=== PATIENT | female | born 1975 | race Caucasian/White ===

== ENCOUNTER 2025-02-12 16:00 | Outpatient (CLI) | payer BC, SELFPAY ==
[2025-02-12 19:16] LABS: Hematocrit 42.9 % (37.0-47.0); Hemoglobin 15.0 g/dL (12.2-16.2); Immature Granulocytes % 0.2 %; Mean Corpuscular HGB Conc 35.0 g/dL (31.8-35.4); Mean Corpuscular Hemoglobin 29.1 pg (27.0-31.2); Mean Corpuscular Volume 83.3 fl (81-99); Nucleated Red Blood Cells % 0 %; Platelet Count 255 K/mm3 (142-424); Red Blood Count 5.15 M/mm3 (4.20-5.40); Red Cell Distribution Width-SD 41.7 fL; White Blood Count 8.3 K/mm3 (4.8-10.8)
[2025-02-12 19:42] LABS: Alanine Aminotransferase 85 U/L (12-78); Albumin Level 4.4 g/dl (3.5-5.0); Albumin/Globulin Ratio 1.6 (1.1-1.8); Alkaline Phosphatase 62 U/L (38-126); Anion Gap 11.4 mEq/L (5-15); Aspartate Amino Transferase 47 U/L (14-36); Bilirubin,Total 0.4 mg/dl (0.2-1.3); Blood Urea Nitrogen 13 mg/dl (7-17); Calcium 9.5 mg/dl (8.4-10.2); Carbon Dioxide 24 mmol/L (22.0-30.0); Chloride 104 mmol/L (98-107); Cholesterol 186 mg/dl (140-200); Creatinine,Serum 0.70 mg/dl (0.52-1.04); Estimated Glomerular Filt Rate 90 ml/min (>60); GFR (African American) 109 ML/MIN (>60); Globulin 2.8 g/dL (1.3-3.2); Glucose 83 mg/dl (74-100); HDL Cholesterol 37 mg/dl (40-60); Potassium 4.4 mmoL/L (3.5-5.1); Sodium 135 mmol/L (136-145); Total Protein,Serum 7.2 g/dl (6.3-8.2); Triglycerides 153 mg/dl (30-150)
[2025-02-12 20:29] LABS: Hepatitis C Ab Qual. W/ RFX NEGATIVE (Negative)
--- OUTSIDE RECORDS SUMMARY | 2025-02-13 11:47 | XMS_ITS | Clinical Summary ---
Author Organization [facility] Address [address] [place] [address] [address] Phone Care Team Providers Care Controller [place] Name Role Phone Unavailable Primary Care Provider Unavailabl e Allergies Active Allergy Reactions Criticality Noted Date Comments Gatifloxacin Hives,Other (See Comments),Palpitations,S welling 10/08/2012 Shortness of breath, hives, increased BP Medications clonazePAM (KLONOPIN) 1 mg Oral Tablet Take 0.5 mg by mouth. Active ergocalciferol (DRISDOL) 1,250 mcg (50,000 unit) Oral Capsule Take 1 Capsule by mouth once a week. 08/04/2022 Active omeprazole (PRILOSEC) 20 mg Oral Capsule, Delayed Release(E.C.) Take 20 mg by mouth daily. Active SYNTHROID 75 mcg Oral Tablet Take 1 Tablet by mouth daily. 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 08/23/2016 Abdominal mass 01/13/2014 Chronic cholecystitis 10/21/2013 Fatty liver 10/21/2013 Nausea 10/21/2013 Abnormal uterine bleeding 10/18/2012 Immunizations Immunization Administration Dates Next Due Influenza Vaccine Quadrivalent 01/03/2017 Influenza Vaccine Quadrivalent PF 01/18/2021,05/2019 Influenza, Injectable, MDCK, PF, Quadrivalent Social History Tobacco Use Types Packs/Day Years Used Date Smoking Tobacco: Some Days Cigarettes Smokeless Tobacco: Never Tobacco Cessation:Ready to Q uit: Not Asked; Counseling Given: Not Answered Comments:Social Smoker, one or two cigarettes Alcohol Use Standard Drinks/Week Comments Yes 1 (1 standard drink = 0.6 oz pur e alcohol) Once a week Comments Unknown Sex and Gender Information Value Date Recorded Sex Assigned at Not on file Legal Sex Female 4:12 PM EDT Gender Identity Not on file Sexual Orientation Not on file Last Filed Vital Signs Vital Sign Reading Time Taken Comments Blood Pressure 124/80 09/18/2024 10:10 AM EDT Pulse 94 09/18/2024 10:10 AM EDT Temperature - - Respiratory Rate 18 09/18/2024 10:10 AM EDT Oxygen Saturation - - Inhaled Oxygen Concentration - - Weight 126.1 kg (278 lb) 09/18/2024 10:10 AM EDT Height 165.1 cm (5' 5 ) 09/18/2024 10:10 AM EDT Body Mass Index 46.26 09/18/2024 10:10 AM EDT Plan of Treatment Upcoming Encounters Date Type Department Care Team (Late st Contact Info) Description 09/18/2025 9:00 AM EDT Office Visit [facility] [address] [place] [phone] Jay Alvarado MD [address] [place] [address] Health Maintenance Due Date Last Done Comments Annual Wellness Exam 1980 DTaP/TDaP/Td (1 - Tdap) 1996 Hepatitis B Vaccine (1 of 3 - 19+ 3-dose series) 1996 Pneumococcal Vaccine 0-49 (1 of 2 - PCV) 1996 Cervical Cancer Screening 1998 Pap Smear 1998 HPV/Pap Cotest 09/13/2007 Cologuard 2022 Colon Cancer Screening 2022 Colonoscopy 2022 FIT 2022 Sigmoidoscopy 2022 Virtual Colonography 2022 COVID-19 Vaccine ( season) 2024 12/07/2023, 01/26/2022, 01/18/2021, Additional history exists Influenza Vaccine (#1) 2024 , 01/26/2022, 01/18/2021, Additional history exists Breast Cancer Screening 10/16/2025 10/17/2023 Meningococcal B Vaccine Aged Out No l onger eligible based on patient's age to complete this topic Insurance ANTHEM PPO ANTHEM PPO
--- OUTSIDE RECORDS SUMMARY | 2025-02-13 11:47 | XMS_ITS | Encounter Summary ---
Author Organization [facility] Address [address] [place] [address] Care Team Providers Care Machine Setter Sheet Metal Name Role Phone Uriel Pickering MD Unavailable [phone] Joanna Brito RN Unavailable Unavailable Gustavo Babin MD Primary Care Provider Frank Pastrana MD Unavailable Ramiro Estrada-Mali Unavailable [phone] Sam Chapman MD Unavailable [phone] Reason for Visit * Reason Onset Date Comments Other 08/29/2023 Schedule Encounter Details Date Type Department Care Team (Late st Contact Info) Description 08/29/2023 Telephone [facility] [address] [place] [phone] Sam Chapman MD [address] [place] [phone] Other (Schedule) Social History Tobacco Use Types Packs/Day Years Used Date Smoking Tobacco: Some Days Cigarettes 0.3 25 Smokeless Tobacco: Never Alcohol Use Standard Drinks/Week Comments Yes 0 (1 standard drink = 0.6 oz pur e alcohol) occas Comments No Sex and Gender Information Value Date Recorded Sex Assigned at Not on file Legal Sex Female 10:57 PM EST Gender Identity Not on file Sexual Orientation Not on file documented as of this encounter Miscellaneous Notes * Telephone Encounter - Avani Prieto - 08/31/2023 12:23 PM EDT Patient wants a colonoscopy with Dr Chapman * Telephone Encounter - Rachel Zafar - 08/29/2023 4:09 PM EDT Patient is calling in wanting to schedule a colonoscopy, she stated that she hasn't seen nely in over 10 years. Please advise documented in this encounter Plan of Treatment Not on file documented as of this encounter Visit Diagnoses Not on filedocumented in this encounter Care Teams Machine Setter Sheet Metal Relationship Specialty Start Date End Date Gustavo Babin MD [address] [place] [address] PCP - General Family Medicine 12/24/13 Uriel Pickering MD [address] [place] [phone] Gastroenterology 11/19/13 Joanna Brito, PATRICK 12/13/13 Frank Pastrana MD [address] [place] [address] [address] [place] [address] Obstetrics & Gynecology 07/11/22 Ramiro Estrada PA-C [address] [place] [address] [address] [place] [address] Physician Wreath Maker 08/07/23 Sam Chapman MD [address] [place] [address] [address] [place] [address] Gastroenterology 08/31/23 documented as of this encounter
--- OUTSIDE RECORDS SUMMARY | 2025-02-13 11:47 | XMS_ITS | Encounter Summary ---
Author Organization [facility] Address [address] [place] [address] Care Team Providers Care Shiftman Name Role Phone Uriel Pickering MD Unavailable [phone] Joanna Brito RN Unavailable Unavailable Gustavo Babin MD Primary Care Provider Frank Pastrana MD Unavailable Ramiro Estrada-C Unavailable [phone] Sam Chapman MD Unavailable [phone] Encounter Details Date Type Department Care Team (Late st Contact Info) Description 08/31/2023 Telephone [facility] [address] [place] [phone] Sam Chapman MD [address] [place] [id number] Social History Tobacco Use Types Packs/Day Years [...] encounter Miscellaneous Notes * Telephone Encounter - Bharti Ahumada - 08/31/2023 2:48 PM EDT Please send nuletely to [facility] for colonoscopy with gg on 12/17 Thank you documented in this encounter Plan of Treatment Not on file documented as of this encounter Visit Diagnoses Diagnosis Colon cancer screening- Primary Special screening for malignant neoplasms, colon documented in this encounter Care Teams Shiftman Relationship Specialty Start Date End Date Gustavo Babin MD [address] [place] [address] PCP - General Family Medicine 12/24/13 Uriel Pickering MD [address] [place] [address] [address] [place] [address] Gastroenterology 11/19/13 Joanna Brito, RN 12/13/13 Frank Pastrana MD [address] [place] [address] [address] [place] [address] Obstetrics & Gynecology 07/11/22 Ramiro Estrada PA-C [address] [address] [place] [address] Physician Chemical Manager 08/07/23 Sam Chapman MD [address] [place] [address] [address] [place] [address] Gastroenterology 08/31/23 documented as of this encounter
--- OUTSIDE RECORDS SUMMARY | 2025-02-13 11:47 | XMS_ITS | Encounter Summary ---
Author Organization [facility] Address [address] [place] [address] Care Team Providers Care Concrete Pipe Making Machine Operator Name Role Phone Uriel Pickering MD Unavailable [phone] Joanna Brito RN Unavailable Unavailable Gustavo Babin MD Primary Care Provider Frank Pastrana MD Unavailable Ramiro Estrada PA-C Unavailable [phone] Sam Chapman MD Unavailable [phone] Encounter Details Date Type Department Care Team (Latest Contact Info) Description 01/04/2016 Transcribe Orders [facility] Ramiro Estrada PA-C [address] [place] [address] Routine cervical smear (Primary Dx) Social History Tobacco Use Types Packs/Day Years Used Date Smoking Tobacco: Some Days Cigarettes Alcohol Use Standard Drinks/Week Comments Yes 58.3 (1 standard drink = 0.6 oz pure alcohol) glass of wine daily Comments No Sex and Gender Information Value Date Recorded Sex Assigned at Not on file Legal Sex Female 10:57 PM EST Gender Identity Not on file Sexual Orientation Not on file documented as of this encounter Plan of Treatment Not on file documented as of this encounter Results * Health Informatics Specialist Cases (01/04/2016 4:31 PM EDT) MECHANICAL INSULATOR CASES SEE BELOW [facility] Comment: [facility] [address] [address] Department of Cytology NADINE CASEY [id number] SPECIMEN SUBMITTED: CERVICAL VAGINAL THIN PREP - IMAGED RELEVANT LMP....None HISTORY: Provided SPECIMEN ADEQUACY SATISFACTORY FOR EVALUATION ENDOCERVICAL/TRANSFORMATION ZONE COMPONENT ABSENT/INSUFFICIENT GENERAL CATEGORIZATION NEGATIVE FOR INTRAEPITHELIAL LESIONS OR MALIGNANCY INTERPRETATION BENIGN CYTOLOGY COMMENTS NEGATIVE@[facility] HPV, HIGH RISK, SCRN, RNA Lab Order # [id number] FURTHER FOLLOW-UP CLINICALLY INDICATED NOTES Specimen successfully analyzed by ThinPrep Imaging System (Manufactured by [employer], [place], [place]) Following automated imaging, selected goldsmith were reviewed by a irrigation supervisor Local Az Truck Driver(s) <Sign Out Dr. Mosley> MAGDA WIGGINS, (CT, ASCP) Page 1 of 1 Cervical/Vaginal ThinPrep (Cervix) 01/04/2016 4:31 PM EDT 01/05/2016 12:12 PM EDT Ramiro Estrada PA-C PATHOLOGY/CYTOLOGY ORDERABLES Final Result Performing Organization Address City/State/[facility] Co de Phone Number [facility] [address] [place] [address] documented in this encounter Visit Diagnoses Diagnosis Routine cervical smear- Primary Screening for malignant neoplasm of the cervix documented in this encounter Additional Health Concerns Infection Onset Date Last Indicated Resolved Time Covid-19 (confirmed) 03/02/2022 03/02/2022 022 10:12 PM EST documented as of this encounter Care Teams Concrete Pipe Making Machine Operator Relationship Specialty Start Date End Date Gustavo Babin MD [address] [place] [address] PCP - General Family Medicine 12/24/13 Uriel Pickering MD [address] [place] [phone] Gastroenterology 11/19/13 Joanna Brito RN 12/13/13 Frank Pastrana MD [address] [place] [address] [address] [place], [place] [id number] Obstetrics & Gynecology 07/11/22 Ramiro Estrada PA-C [address] [place] [address] [address] [place] [address] Physician Edi Programmer Analyst 08/07/23 Sam Chapman MD [address] [place] [address] [address] [place] [address] Gastroenterology 08/31/23 documented as of this encounter
--- OUTSIDE RECORDS SUMMARY | 2025-02-13 11:47 | XMS_ITS | Clinical Summary ---
Author Organization [facility] 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
--- OUTSIDE RECORDS SUMMARY | 2025-02-13 11:47 | XMS_ITS | Encounter Summary ---
Author Organization [facility] Address [address] [place] [address] Care Team Providers Care Cash Processor Name Role Phone Uriel Pickering MD Unavailable [phone] Joanna Brito RN Unavailable Unavailable Gustavo Babin MD Primary Care Provider Frank Pastrana MD Unavailable [phone] Ramiro Estrada PA-C Unavailable [phone] Sam Chapman MD Unavailable [phone] Encounter Details Date Type Department Care Team (Latest Contact Info) Description 12/31/2014 Transcribe Orders [facility] Ramiro Estrada PA-C [address] [place] [address] Routine cervical smear (Primary Dx) Social History [...] documented as of this encounter Results * Pap Smear (certified court/medical interpreter cases) (12/31/2014 2:48 PM EDT) DIRECT CARE WORKER CASES SEE BELOW [facility] Comment: [facility] [address] [address] Department of Cytology NADINE CASEY [id number] SPECIMEN SUBMITTED: CERVICAL VAGINAL THIN PREP - IMAGED RELEVANT LMP....None HISTORY: Provided SPECIMEN ADEQUACY SATISFACTORY FOR EVALUATION ENDOCERVICAL/TRANSFORMATION ZONE COMPONENT PRESENT GENERAL CATEGORIZATION NEGATIVE FOR INTRAEPITHELIAL LESIONS OR MALIGNANCY DESCRIPTIVE DIAGNOSIS BENIGN CYTOLOGY COMMENTS THIS SPECIMEN HAS BEEN ANALYZED BY THE THINPREP IMAGING SYSTEM. FOLLOWING AUTOMATED IMAGING, SELECTED [place] WERE REVIEWED BY A SOCIAL SERVICE DIRECTOR <Sign Out Dr. Mosley> Screened By : MAGDA WIGGINS, (CT, ASCP) Page 1 of 1 Cervical/Vaginal ThinPrep (Cervix) 12/31/2014 2:48 PM EDT 01/01/2015 8:41 AM EDT Ramiro Estrada PA-C PATHOLOGY/CYTOLOGY ORDERABLES Final Result Performing Organization Address City/State/[facility] Co de Phone Number [facility] [address] [place] [address] documented in this encounter Visit Diagnoses Diagnosis Routine cervical smear- Primary Screening for malignant neoplasm of the cervix documented in this encounter Additional Health Concerns Infection Onset Date Last Indicated Resolved Time Covid-19 (confirmed) 03/02/2022 03/02/2022 022 10:12 PM EST documented as of this encounter Care Teams Cash Processor Relationship Specialty Start Date End Date Gustavo Babin MD [address] [place] [address] PCP - General Family Medicine 12/24/13 Uriel Pickering MD [address] [place] [id number] Gastroenterology 11/19/13 Joanna Brito, PATRICK 12/13/13 Frank Pastrana MD [address] [place] [address] Obstetrics & Gynecology 07/11/22 Ramiro Estrada PA-C [address] [address] [place] [address] Physician Stable Manager 08/07/23 Sam Chapman MD [address] [address] [place] [address] Gastroenterology 08/31/23 documented as of this encounter
--- OUTSIDE RECORDS SUMMARY | 2025-02-13 11:47 | XMS_ITS | Encounter Summary ---
Author Organization [facility] Address [address] [place] [address] Care Team Providers Care Surgical Assistant Certified Name Role Phone Uriel Pickering MD Unavailable [phone] Joanna Brito RN Unavailable Unavailable Gustavo Babin MD Primary Care Provider [phone] Frank Pastrana MD Unavailable Ramiro Estrada-C Unavailable Sam Chapman MD Unavailable [phone] Encounter Details Date Type Department Care Team (Late st Contact Info) Description 10/22/2013 Telephone Pre-Admission Testing [address] [place] [address] Erin Cheung, PATRICK Social History Tobacco Use Types Packs/Day Years [...] on file documented as of this encounter Functional Status * Pre-Procedure Verification Question Answer Date of Assessment Author Patient's responses verified with relevant data in medical record? Admission Database;History and Physical;Physician's Order 10/22/2013 2:41 PM EDT Erin Cheung RN Verbal Verification with: Patient 10/22/2013 2:41 PM EDT Erin Cheung RN Two patient identifiers are confirmed: Full Name;Date of 10/22/2013 2:41 PM EDT Erin Cheung RN Correct procedure verified by: Patient 10/22/2013 2:41 PM EDT Erin Cheung RN Correct Laterality verified by: N/A 10/22/2013 2:41 PM EDT Erin Cheung RN Correct site(s) verified by: Patient 10/22/2013 2:41 PM EDT Erin Cheung RN Dept/Area completing checklist PAT 10/22/2013 2:41 PM EDT Erin Cheung RN Procedure(s): LAP ÁNGEL; WEDGE LIVER BIOPSY 10/22/2013 2:41 PM EDT Erin Cheung RN * Height and Weight Question Answer Date of Assessment Author Height 66 10/22/2013 2:27 PM EDT Erin Ray RN Weight 4080 10/22/2013 2:27 PM EDT Erin Ray RN BSA (Calculated - sq m) 2.32 10/22/2013 2:27 P M EDT Erin Cheung RN BMI (Calculated) 41.2 10/22/2013 2:27 PM EDT Erin Aceves RN * Infection Control Evaluation Question Answer Date of Assessment Author Respiratory (2 or > need res p. isolation) None 10/22/2013 2:31 PM EDT Erin Cheung RN History of Positive TB Test? No 10/22/2013 2 :31 PM EDT Erin Cheung RN Ever had TB Exposure? No 10/22/2013 2:31 PM EDT Erin Cheung RN Any Draining Wounds? No 10/22/2013 2:31 PM E Erin Fuentes RN Need Isolation? No 10/22/2013 2:31 PM EDT Erin Mackey RN * Question Answer Date of Assessment Author Healthcare Directive Yes, patient has advance directive for healthcare treatment 10/22/2013 2:30 PM EDT Erin Cheung RN Type of Healthcare Directive None 10/22/2013 2:30 PM EDT Erin Cheung RN * Pain 1 Question Answer Date of Assessment Author Patient Currently in Pain No 10/22/2013 2:31 PM EDT Erin Cheung RN * Question Answer Date of Assessment Author Retired Any anabaptism, cultu ral, and/or personal beliefs that prevent blood product administration? Retired No 10/22/2013 2:32 PM EDT Vijaya Cheung RN * ADL Screening Question Answer Date of Assessment Author Patient able to complete ADL independently? Yes 10/22/2013 2:31 PM EDT Erin Cheung RN Extremity strength is age appropriate? Yes 10/22/2013 2:31 PM EDT Erin Cheung RN Patient ambulates at home Yes, is independent 10/22/2013 2:31 PM EDT Erin Cheung RN * Sensory/Cognitive Assessment Question Answer Date of Assessment Author Is patient sensory impaired? Yes 10/22/2013 2:31 PM EDT Erin Cheung RN Sensory Impairment Vision 10/22/2013 2:31 PM EDT Erin Cheung RN Visual Impairment Wears contacts;Wears glasses 10/22/2013 2:31 PM EDT Erin Cheung RN * Research Study Participant Question Answer Date of Assessment Author Are you currently involved i n a research study? No 10/22/2013 2:32 PM EDT Erin Cheung RN * Influenza Immunization Assessment Question Answer Date of Assessment Author Have you been previously immunized this flu season? No 10/22/2013 2:31 PM EDT Erin Cheung RN * Pneumonia Immunization Assessment Question Answer Date of Assessment Author Age of the patient? 2 through 64 years old 10/22/2013 2:31 PM EDT Erin Cheung RN Have you been previously immunized for pneumonia? No 10/22/2013 2:31 PM EDT Erin Cheung RN * Learning Needs Assessment Question Answer Date of Assessment Author Prefered language to receive healthcare information? [place] 10/22/2013 2:32 PM EDT Vijaya Cheung RN Cultural or anabaptism belief s that may affect how care and education is provided? No 10/22/2013 2:32 PM EDT Humberto Cheung RN Emotional barriers that may affect learning? No 10/22/2013 2:32 PM EDT Erin Cheung RN Demonstrates a desire and motivation to learn? Yes 10/22/2013 2:32 PM EDT Bean Cheung RN Physical or cognitive limitations to learning? No 10/22/2013 2:32 PM EDT Erin Cheung RN Barriers to communication? No 10/22/2013 2:3 2 PM EDT Erin Cheung RN * ADL Screening Question Answer Date of Assessment Author Patient able to complete ADL independently? Yes 10/22/2013 2:31 PM EDT Erin Cheung RN Extremity strength is age appropriate? Yes 10/22/2013 2:31 PM EDT Erin Cheung RN Patient ambulates at home Yes, is independent 10/22/2013 2:31 PM EDT Erin Cheung RN * Sensory/Cognitive Assessment Question Answer Date of Assessment Author Is patient sensory impaired? Yes 10/22/2013 2:31 PM EDT Erin Cheung RN Sensory Impairment Vision 10/22/2013 2:31 PM EDT Erin Cheung RN Visual Impairment Wears contacts;Wears glasses 10/22/2013 2:31 PM EDT Erin Cheung RN documented as of this encounter Miscellaneous Notes * Telephone Encounter - Erin Cheung - 10/22/2013 2:41 PM EDT Nursing hx obtained by phone and pre-op instructions given. Pt verbalized understanding NPO status,shower prior to surgery, no lotions,powders or jewelry. Pt instructed to take her lisinopril am of surgery- she verb understanding. documented in this encounter Plan of Treatment Not on file documented as of this encounter Visit Diagnoses Not on filedocumented in this encounter Additional Health Concerns Infection Onset Date Last Indicated Resolved Time Covid-19 (confirmed) 03/02/2022 03/02/2022 022 10:12 PM EST documented as of this encounter Care Teams Surgical Assistant Certified Relationship Specialty Start Date End Date Gustavo Babin MD [address] [place] [address] PCP - General Family Medicine 12/24/13 Uriel Pickering MD [address] [place] [address] Gastroenterology 11/19/13 Joanna Brito, PATRICK 12/13/13 Frank Pastrana MD [address] [place] [address] [address] [place] [address] Obstetrics & Gynecology 07/11/22 Ramiro Estrada PA-C [address] [facility] [address] [place] [address] Physician Loader Operator/Ground Leader 08/07/23 Sam Chapman MD [address] [address] [facility] [place] [address] Gastroenterology 08/31/23 documented as of this encounter
--- OUTSIDE RECORDS SUMMARY | 2025-02-13 11:47 | XMS_ITS | Clinical Summary ---
Author Organization [facility] Address [address] [place] [address] Care Team Providers Care Management Services Technician Name Role Phone Uriel Pickering MD Unavailable [phone] Joanna Brito RN Unavailable Unavailable Gustavo Babin MD Primary Care Provider Frnak Pastrana MD Unavailable EstradaRamiro caraballo PA-C Unavailable [phone] Sam Pope MD Unavailable [phone] Allergies Active Allergy Reactions Criticality Noted Date Comments Gatifloxacin Hives,Swelling,Palpitations 2012 Medications CLONAZEPAM PO Take 1 TAB by mouth As needed. Active omeprazole (PRILOSEC) [address] capsule Take 20 mg by mouth Once Daily. Active ergocalciferol (VITAMIN D2) 50,000 unit CAPSULEIndication s:Vitamin D deficiency Take 1 Capsule by mouth Every week. 12 Capsule 3 3 Active SYNTHROID 75 mcg tabletIndications :Nontoxic multinodular goiter Take 1 Tablet by mouth Once Daily. 90 Tablet 3 4 Active polyethylene glycol-electrolyt es (NULYTELY) 420 gIndications:[place] n cancer screening Take 4,000 mL by mouth As directed. Half at 3pm and Second half at 6 pm 1 Each 4 Active Active Problems Problem Noted Date Diagnosed Date Colon cancer screening 08/31/2023 Vitamin D deficiency 03/09/2020 Nontoxic multinodular goiter 01/13/2020 Obesity, Class III, BMI 40-49.9 (morbid obesity) 01/13/2020 Abdominal mass 01/13/2014 Nausea 10/21/2013 Chronic cholecystitis 10/21/2013 Fatty liver 10/21/2013 Abnormal uterine bleeding 10/18/2012 Family History Medical History Relation Name Comments Cancer Father Cataract Mother Heart Disease Mother stent placemen t Hypertension Mother Breast Cancer Neg Hx Relation Name Status Comments Father Mother Alive Social History Tobacco Use Types Packs/Day Years Used Date Smoking Tobacco: Some Days Cigarettes 0.3 25 Smokeless Tobacco: Never Tobacco Cessation:Ready to Q uit: Not Asked; Counseling Given: Not Answered Alcohol Use Standard Drinks/Week Comments Yes 0 (1 standard drink = 0.6 oz pur e alcohol) occas Comments No Sex and Gender Information Value Date Recorded Sex Assigned at Not on file Legal Sex Female 10:57 PM EST Gender Identity Not on file Sexual Orientation Not on file Last Filed Vital Signs Vital Sign Reading Time Taken Comments Blood Pressure 135/83 12/18/2023 3:05 PM EDT Pulse 71 12/18/2023 3:05 PM EDT Temperature 37.1 C (98.8 F) 12/18/2023 2:50 PM EDT Respiratory Rate 16 12/18/2023 3:05 PM EDT Oxygen Saturation 100% 12/18/2023 3:05 PM EDT Inhaled Oxygen Concentration - - Weight 113.4 kg (250 lb) 12/18/2023 1:51 PM EDT Height 165.1 cm (5' 5 ) 12/18/2023 1:51 PM EDT Body Mass Index 41.6 12/18/2023 1:51 PM EDT Plan of Treatment Health Maintenance Due Date Last Done Comments COLOGUARD 1975 FIT 1975 HEP C SCREENING 1975 SIGMOIDOSCOPY 1975 DTAP/TDAP/TD VACCINE (1 - Tdap) 1996 HEP A VACCINE (1 of 2 - Risk 2-dose series) 1996 ANNUAL WELLNESS EXAM 08/07/2024 08/07/2023, 07/12/19 ANNUAL MAMMOGRAM 10/17/2024 10/17/2023, , 04/20/2021, Additional history exists COVID-19 Vaccine ( season) 2024 01/18/2021, 04/28/2020, 03/31/2020 INFLUENZA VACCINE (#1) 2024 , 01/18/2021, 01/28/2020, Additional history exists PAP SMEAR EVERY 3 YR (Cervical Cancer Screen) 07/11/2025 07/11/2022, 10/06/2017, 01/04/2016, Additional history exists COLONOSCOPY 12/17/2033 12/18/2023, 12/18/2023 Colorectal Screening Combination 12/17/2033 CT Colonography Completed HIB VACCINE Aged Out No longer eligi ble based on patient's age to complete this topic ROTOVIRUS VACCINE Aged Out No longer eligible based on patient's age to complete this topic Medical Devices Implanted Type Area Land Acquisition Specialist Device Identifier Shelf Expiration Date Model / Serial / Lot Lap Endoclip Bit Sharpener Ligamax 5mm Med/Lg El5ml Implanted:Qty: 1 on 10/29/2013 by Cisco Hargrove MD at [facility] Clip N/A: Abdomen ETHICON 07/24/2018 [id number] / / [id number] Procedures Procedure Name Priority Date/Time Associated Diagnosis Comments [facility]ATION COLONOSCOPY Routine 12/18/2023 2:24 PM EDT MAMMO SCREENING (3D) BILATERAL Routine 10/17/2023 11:35 AM EDT Visit for screening mammogram MILITARY POLICE OFFICER CASES Routine 07/11/2022 10:06 AM EDT Pap smear for cervical cancer screening from Last 3 Months or Most Recently Relevant to Health Maintenance Results * PROVATION COLONOSCOPY (12/18/2023 2:24 PM EDT) 12/18/2023 2:24 PM EDT Narrative PR[facility]ATION [facility] - 12/18/2023 3:11 PM EDT Patient Name: Nadine Casey Procedure Date: 12/18/2023 2:24 PM Date of : 1975 Gender: Female Age: 48 Attending MD: SAM POPE MD Procedure: Colonoscopy Indications: Screening for colorectal malignant neoplasm Providers: SAM POPE MD Referring MD: Requesting Provider: Medicines: Propofol per Anesthesia Complications: No immediate complications. Procedure: Pre-Anesthesia Assessment: - Prior to the procedure, a History and Physical was performed, and patient medications and allergies were reviewed. The patient's tolerance of previous anesthesia was also reviewed. The risks and benefits of the procedure and the sedation options and risks were discussed with the patient. All questions were answered, and informed consent was obtained. Prior Anticoagulants: The patient has taken no anticoagulant or antiplatelet agents. ASA Grade Assessment: III - A patient with severe systemic disease. After reviewing the risks and benefits, the patient was deemed in satisfactory condition to undergo the procedure. After I obtained informed consent, the patient was carefully attached to monitoring devices. placed in the left lateral position and the scope was passed under direct vision. Throughout the procedure, the patient's blood pressure, pulse, and oxygen saturations were monitored continuously. The Colonoscope was introduced through the anus and advanced to the cecum, identified by appendiceal orifice and ileocecal valve. The colonoscopy was performed without difficulty. The patient tolerated the procedure well. The quality of the bowel preparation was evaluated using the BBPS ([place] Bowel Preparation Scale) with scores of: Right Colon = 2 (minor amount of residual staining, small fragments of stool and/or opaque liquid, but mucosa seen well) and Transverse Colon = 2 (minor amount of residual staining, small fragments of stool and/or opaque liquid, but mucosa seen well). The total BBPS score equals 4. The quality of the bowel preparation was good. The ileocecal valve, appendiceal orifice, and rectum were photographed. Findings: The perianal and digital rectal examinations were normal. Internal hemorrhoids were found during retroflexion. The hemorrhoids were medium-sized and Grade II (internal hemorrhoids that prolapse but reduce spontaneously). A few small-mouthed diverticula were found in the sigmoid colon and descending colon. There is no endoscopic evidence of mass or polyps in the entire colon. Impression: - Internal hemorrhoids. - Diverticulosis in the sigmoid colon and in the descending colon. Recommendation: - Patient has a contact number available for emergencies. The signs and symptoms of potential delayed complications were discussed with the patient. Return to normal activities tomorrow. Written discharge instructions were provided to the patient. - Resume previous diet. - Continue present medications. - Repeat colonoscopy in 10 years for screening purposes. Attending Participation: I personally performed the entire procedure. Sam Pope MD SAM POPE MD 12/18/2023 3:11:13 PM This report has been signed electronically. Number of Addenda: 0 Note Initiated On: 12/18/2023 2:24 PM Scope Withdrawal Time 0 hours 7 minutes 50 seconds Total Procedure Duration Time 0 hours 12 minutes 53 seconds Estimated Blood Loss: Estimated blood loss: none. us Sam Pope MD PROVATION GI Final Resu lt [facility]ATION [facility] [address] [facility] [place] [address] * Mammo Screening (3D) Bilateral (10/17/2023 11:35 AM EDT) Anatomical Region Laterality Modality breast Bilateral Mammography Impressions 10/19/2023 7:07 PM EDT : No mammographic evidence of malignancy. ACR BI-RADS CATEGORY 1. Negative. RECOMMENDATION: Routine screening mammography in one year. The [employer] recommends annual screening mammography at age 40 for average risk women. Consult with your provider regarding the best screening regimen for you.Annual Diagnostic mammography assuming a stable clinical breast examination. Per national SA guidelines, a breast imaging result letter will be provided to your patient. THIS IS AN ELECTRONICALLY VERIFIED REPORT Yuli Coronado MD bks Narrative 10/19/2023 7:07 PM EDT ACCREDITED BY THE [employer] EXAM: Implant screening bilateral mammogram, 10/17/2023. HISTORY: Routine screening. COMPARISON: 07/11/2022 and mammograms from 2021, 2019, and 2017. TECHNIQUE: Routine views were obtained in the implant/included and implant displacement positioning. Tomosynthesis with 2D reconstruction was performed on implant displacement views. CAD was employed. DENSITY: Almost entirely fat. This category does not meet criteria for dense breast tissue. FINDINGS: Bilateral subpectoral silicone implants are present. No significant change from prior mammograms. No suspicious findings. us Self Referral IMG MAMMOGRAPHY ORDERABLES Final Result * Pap Smear (almond blancher hand cases) (07/11/2022 10:06 AM EDT) Pathologist Dimitri MILITARY POLICE OFFICER CASES SEE BELOW [facility] Comment: [place] [address] Department of Cytology NADINE CASEY [id number] The information contained in this report is meant to be interpreted by the ordering physician/health care provider in the context of the patient's clinical findings. Please refer to your physician/health care provider for follow up care. SPECIMEN SUBMITTED: CERVICAL VAGINAL THIN PREP - IMAGED RELEVANT LMP....None HISTORY: Provided SPECIMEN ADEQUACY SATISFACTORY FOR EVALUATION ENDOCERVICAL/TRANSFORMATION ZONE COMPONENT PRESENT GENERAL CATEGORIZATION NEGATIVE FOR INTRAEPITHELIAL LESIONS OR MALIGNANCY INTERPRETATION BENIGN CYTOLOGY NOTES Specimen successfully analyzed by ThinPrep Imaging System (Manufactured by [employer], [place], [place]) Following automated imaging, selected goldsmith were reviewed by a psychologist engineering Cheerleading Coach(s) <Sign Out Dr. Mosley> ERICA REA, (CT, ASCP) Page 1 of 1 Cervical/Vaginal ThinPrep (Cervix) 07/11/2022 10:06 AM EDT 07/12/2022 1:09 PM EDT Frank Pastrana MD PATHOLOGY/CYTOLOGY ORDERAB LES Final Result [facility] [address] [place] [address] from Last 3 Months or Most Recently Relevant to Health Maintenance Insurance [facility] Advance Directives * Full Code (Latest Code Status on File) Date Activated Date Inactivated Comments 12/18/2023 1:39 PM 12/18/2023 7:40 PM Care Teams Management Services Technician Relationship Specialty Start Date End Date Gustavo Babin MD [address] [place] [address] PCP - General Family Medicine 12/24/13 Uriel Pickering MD [address] [place] [address] [address] [place] [address] Gastroenterology 11/19/13 Jaonna Brito, PATRICK 12/13/13 Frank Pastrana MD [address] [place] [address] [address] [place] [address] Obstetrics & Gynecology 07/11/22 Ramiro Estrada PA-C [address] [place] [address] [address] [place] [address] Physician Rn Camp 08/07/23 Sam Pope MD [address] [place] [address] [address] [place] [address] Gastroenterology 08/31/23
--- OUTSIDE RECORDS SUMMARY | 2025-02-13 11:47 | XMS_ITS | Encounter Summary ---
Author Organization [facility] Address [address] [place] [address] Care Team Providers Care Distance Learning Coordinator Name Role Phone Uriel Pickering MD Unavailable Joanna Brito RN Unavailable Unavailable Gustavo Babin MD Primary Care Provider Frank Pastrana MD Unavailable [phone] Ramiro Estrada PA-C Unavailable [phone] Sam Chapman MD Unavailable [phone] Encounter Details Date Type Department Care Team (Latest Contact Info) Description 10/06/2017 Transcribe Orders [facility] Ramiro Estrada PA-C [address] [place] [address] Routine cervical smear (Primary Dx) Social History [...] of this encounter Results * Pap Smear (crosscutter rolled glass cases) (10/06/2017 2:22 PM EDT) ASSISTANT DIRECTOR OF RESIDENCE LIFE CASES SEE BELOW [facility] Comment: [facility] [address] [place] [address] Department of Cytology NADINE CASEY [id number] SPECIMEN SUBMITTED: CERVICAL VAGINAL THIN PREP - IMAGED RELEVANT LMP....None HISTORY: Provided Prev Neg HPV: 12/2015 Comment: s/p ablation SPECIMEN ADEQUACY SATISFACTORY FOR EVALUATION ENDOCERVICAL/TRANSFORMATION ZONE COMPONENT PRESENT GENERAL CATEGORIZATION NEGATIVE FOR INTRAEPITHELIAL LESIONS OR MALIGNANCY INTERPRETATION BENIGN CYTOLOGY NOTES Specimen successfully analyzed by ThinPrep Imaging System (Manufactured by [employer], [place], [place]) Following automated imaging, selected goldsmith were reviewed by a base engineer [employer] Fab[employer] Presser(s) <Sign Out Dr. Mosley> JONATHAN ENGEL, (CT, ASCP) Page 1 of 1 Cervical/Vaginal ThinPrep (Cervix) 10/06/2017 2:22 PM EDT 10/09/2017 11:05 AM EDT Ramiro Estrada PA-C PATHOLOGY/CYTOLOGY ORDERABLES Final Result [facility] [address] [place] [address] documented in this encounter Visit Diagnoses Diagnosis Routine cervical smear- Primary Screening for malignant neoplasm of the cervix documented in this encounter Additional Health Concerns Infection Onset Date Last Indicated Resolved Time Covid-19 (confirmed) 03/02/2022 03/02/2022 022 10:12 PM EST documented as of this encounter Care Teams Distance Learning Coordinator Relationship Specialty Start Date End Date Gustavo Babin MD [address] [place] [address] PCP - General Family Medicine 12/24/13 Uriel Pickering MD [address] [place] [id number] Gastroenterology 11/19/13 Joanna Brito RN 12/13/13 Frank Pastrana MD [address] [place] [address] [address] [place] [address] Obstetrics & Gynecology 07/11/22 Ramiro Estrada PA-C [address] [place] [address] [address] [place] [address] Physician Oracle Database Manager 08/07/23 Sam Chapman MD [address] [place] [address] [address] [place] [address] Gastroenterology 08/31/23 documented as of this encounter
--- OUTSIDE RECORDS SUMMARY | 2025-02-13 11:47 | XMS_ITS | Encounter Summary ---
Author Organization [facility] Address [address] [place] [address] Care Team Providers Care Clinical Cytopathologist Name Role Phone Uriel Pickering MD Unavailable Joanna Brito RN Unavailable Unavailable Gustavo Babin MD Primary Care Provider [phone] Frank Pastrana MD Unavailable [phone] Ramiro Estrada PA-C Unavailable [phone] Sam Chapman MD Unavailable Encounter Details Date Type Department Care Team (Latest Contact Info) Description 12/10/2013 Transcribe Orders [facility] Ramiro Estrada PA-C [address] [place] [address] Screening for malignant neoplasm of the cervix (Primary Dx) Social History Tobacco Use Types [...] of this encounter Results * Pap Smear (meter shop supervisor cases) (12/10/2013 2:32 PM EDT) FEDERAL LAW CLERK CASES SEE BELOW [facility] Comment: [facility] [address] [place] [address] Department of Cytology NADINE CASEY [id number] SPECIMEN SUBMITTED: CERVICAL VAGINAL THIN PREP - IMAGED RELEVANT LMP....None HISTORY: Provided Comment: Ablation SPECIMEN ADEQUACY SATISFACTORY FOR EVALUATION ENDOCERVICAL/TRANSFORMATION ZONE COMPONENT PRESENT GENERAL CATEGORIZATION NEGATIVE FOR INTRAEPITHELIAL LESIONS OR MALIGNANCY DESCRIPTIVE DIAGNOSIS BENIGN CYTOLOGY COMMENTS THIS SPECIMEN HAS BEEN ANALYZED BY THE THINPREP IMAGING SYSTEM. FOLLOWING AUTOMATED IMAGING, SELECTED [place] WERE REVIEWED BY A BACKUP ENGINEER <Sign Out Dr. Mosley> Screened By : JONATHAN ENGEL, (CT, ASCP) Page 1 of 1 Cervical/Vaginal ThinPrep (Cervix) 12/10/2013 2:32 PM EDT 12/11/2013 9:18 AM EDT Ramiro Estrada PA-C PATHOLOGY/CYTOLOGY ORDERABLES Final Result [facility] [address] [place] [address] documented in this encounter Visit Diagnoses Diagnosis Screening for malignant neoplasm of the cervix- Primary documented in this encounter Additional Health Concerns Infection Onset Date Last Indicated Resolved Time Covid-19 (confirmed) 03/02/2022 03/02/2022 022 10:12 PM EST documented as of this encounter Care Teams Clinical Cytopathologist Relationship Specialty Start Date End Date Gustavo Babin MD [address] [place] [address] PCP - General Family Medicine 12/24/13 Uriel Pickering MD [address] [place] [phone] Gastroenterology 11/19/13 Joanna Brito, PATRICK 12/13/13 Frank Pastrana MD [address] [place] [phone] Obstetrics & Gynecology 07/11/22 Ramiro Estrada PA-C [address] [address] [place] [address] Physician Microfabrication Engineer Manager 08/07/23 Sam Chapman MD [address] [address] [place] [address] Gastroenterology 08/31/23 documented as of this encounter
[2025-02-14 05:24] LABS: Hepatitis B Surface Antigen Negative (Negative)
== END 2025-02-12 23:59 | disposition home or self-care (01) ==
LOC: LAB.DROPOF 02-13 10:41
PROVIDERS: PCP Family Medicine; Visit Provider Family Medicine
DX: E03.9 Hypothyroidism, unspecified (principal); E66.01 Morbid (severe) obesity due to excess calories; Z68.41 Body mass index [BMI] 40.0-44.9, adult; Z11.59 Encounter for screening for other viral diseases
CPT/HCPCS: 80053; 80061; 85025; 86803; 87340; 87389